=== PATIENT | female | born 1980 | race Caucasian/White ===

== ENCOUNTER 2019-02-03 09:53 | Day surgery (SDC) | payer BC ==
[~2019-02-03 09:53] MED LIST: ACETAMINOPHEN 500 MG TAB PO; CEFAZOLIN 1 GM INJ; ROCURONIUM 50 MG INJ; SUGAMMADEX SODIUM 200 MG/2 ML VIAL IV
[2019-02-03] MEDS ORDERED: LIDOCAINE 2% (SDV) 5 ML INJ (12:27)
[2019-02-03] MEDS ORDERED: FAMOTIDINE 20 MG INJ (12:27)
[2019-02-03] MEDS ORDERED: PROPOFOL 40 ML (12:27)
[2019-02-03] MEDS ORDERED: MIDAZOLAM 1 MG/ML 2 ML INJ (12:27)
[2019-02-03] MEDS ORDERED: ONDANSETRON 4 MG INJ (12:27)
[2019-02-03] MEDS ORDERED: FENTAnyl 50 MCG/ML VIAL (12:27)
[2019-02-03] MEDS ORDERED: morphine (1 MG/ML) 10ML SYRINGE IV ×2 (12:30)
[2019-02-03] MEDS ORDERED: HYDROmorphONE 1 MG/5 ML IV SYRINGE IV (12:30)
[2019-02-03] MEDS ORDERED: OXYCODONE/ACETAMINOPHEN (5/325) TAB PO ×2 (12:30)
[2019-02-03] MEDS ORDERED: MEPERIDINE 25 MG INJ IV (12:30)
[2019-02-03] MEDS ORDERED: ALBUTEROL 0.083% (NEB) 2.5 MG/3 ML AMP HHN (12:30)
[2019-02-03] MEDS ORDERED: DIPHENHYDRAMINE 50 MG INJ IV (12:30)
[2019-02-03] MEDS ORDERED: FENTAnyl 50 MCG/ML VIAL IV ×2 (12:30)
[2019-02-03] MEDS ORDERED: LABETALOL HCL 20MG INJ IV (12:30)
[2019-02-03] MEDS: LIDOCAINE 1%/EPI (1:100,000) (MDV) 20 ML (13:03)
[2019-02-03] MEDS ORDERED: KETOROLAC 30 MG INJ (13:09)
[2019-02-03] MEDS: HYDROmorphONE 1 MG/5 ML IV SYRINGE IV ×2 (14:18→14:34)
[2019-02-03] MEDS: ONDANSETRON 4 MG INJ IV (14:58)
== END 2019-02-03 16:00 | disposition home or self-care (01) ==
LOC: SDS 09:53
DX: Z30.2 Encounter for sterilization (principal)
CPT/HCPCS: 58670